=== PATIENT | male | born 1955 | race Caucasian/White ===

== ENCOUNTER 2022-02-03 08:00 | Outpatient (CLI) | payer MEDICARE, SELFPAY ==
[2022-02-03 19:54] LABS: Hemoglobin A1C 8.4 % (<5.7)
[2022-02-03 20:20] LABS: Anion Gap 11 mmol/L (8-16); Blood Urea Nitrogen 20 mg/dL (9-20); Calcium 9.5 mg/dL (8.4-10.2); Carbon Dioxide 25 mmol/L (22-30); Chloride 101 mmol/L (98-107); Estimated Glomerular Filt Rate > 60; Glucose 156 mg/dL (65-110); Sodium 137 mmol/L (137-145)
[2022-02-03 20:21] LABS: Creatinine Urine 207.2 mg/dL
[2022-02-03 20:24] LABS: MALB Creatinine Ratio 6.5 mg/g (0-30); Microalbumin Urine Random 13.4 mg/L (0-16.7)
== END 2022-02-03 08:01 | disposition home or self-care (01) ==
PROVIDERS: PCP Internal Medicine; Visit Provider Clinical Nurse Specialist
DX: E11.9 Type 2 diabetes mellitus without complications (principal)
CPT/HCPCS: 36415; 80048; 82043; 83036

== ENCOUNTER 2022-05-20 09:27 | Outpatient (CLI) | payer MEDICARE, SELFPAY ==
[2022-05-20 19:22] LABS: Basophils Absolute Auto 0.1 K/mm3 (0.0-0.1); Basophils Percent Auto 0.8 % (0.2-1.2); Eosinophils Absolute Auto 0.2 K/mm3 (0-0.3); Eosinophils Percent Auto 2.1 % (0-4.4); Hematocrit 45.9 % (42.0-52.0); Immature Granulocyte Absolute 0.04 K/mm3 (0.00-0.031); Immature Granulocyte Percent A 0.5 % (0-0.5); Lymphocytes Absolute Auto 1.98 K/mm3 (0.9-3.2); Lymphocytes Percent Auto 25.7 % (18.3-44.2); Mean Corpuscular HGB Conc 30.5 g/dl (32-36); Mean Corpuscular Hemoglobin 24.6 pg (26-34); Mean Corpuscular Volume 80.8 fl (80-100); Mean Platelet Volume 11.1 fl (7.4-10.4); Monocytes Absolute Auto 0.7 K/mm3 (0.1-0.6); Monocytes Percent Auto 8.6 % (2.6-8.5); Neutrophils Absolute Auto 4.8 K/mm3 (1.3-6.7); Neutrophils Percent Auto 62.3 % (45.5-73.1); Platelet Count Result 285 k/mm3 (150-375); Red Blood Count 5.68 M/mm3 (4.6-6.20); Red Cell Distribution Width 15.7 % (11.5-14.5); White Blood Count 7.7 K/mm3 (4.5-10.0)
[2022-05-20 19:50] LABS: Alanine Aminotransferase 23 U/L (6-50); Albumin Level 4.2 g/dL (3.5-5.1); Alkaline Phosphatase 71 U/L (38-126); Anion Gap 8 mmol/L (8-16); Aspartate Amino Transferase 40 U/L (17-59); Bilirubin,Total 0.8 mg/dL (0.2-1.3); Blood Urea Nitrogen 20 mg/dL (9-20); Carbon Dioxide 30 mmol/L (22-30); Chloride 101 mmol/L (98-107); Cholesterol 129 mg/dL (0-200); Estimated Glomerular Filt Rate > 60; Glucose 128 mg/dL (65-110); HDL Direct 38 mg/dL; Sodium 139 mmol/L (137-145); Triglycerides 141 mg/dL (<150)
[2022-05-20 19:58] LABS: LDL Cholesterol Direct 54 mg/dL
[2022-05-24 16:10] LABS: Testosterone Total 391 ng/dL (250-1100)
== END 2022-05-20 09:28 | disposition home or self-care (01) ==
LOC: ANHGOSHLAB 09:30
PROVIDERS: PCP Internal Medicine; Visit Provider Clinical Nurse Specialist
DX: R53.83 Other fatigue (principal); E11.9 Type 2 diabetes mellitus without complications; E78.5 Hyperlipidemia, unspecified; Z12.5 Encounter for screening for malignant neoplasm of prostate
CPT/HCPCS: 36415; 80053; 80061; 83036; 84153; 84402; 84403; 85025; G0103

== ENCOUNTER 2022-05-24 08:19 | Outpatient (CLI) | payer MEDICARE, SELFPAY ==
[2022-05-24 19:57] LABS: Hemoglobin A1C 7.5 % (<5.7)
== END 2022-05-24 08:20 | disposition home or self-care (01) ==
LOC: ANHGOSHLAB 08:20
PROVIDERS: PCP Internal Medicine; Visit Provider Clinical Nurse Specialist
DX: E11.9 Type 2 diabetes mellitus without complications (principal); R97.20 Elevated prostate specific antigen [PSA]
CPT/HCPCS: 36415; 83036; 84153

== ENCOUNTER 2022-06-07 14:45 | Outpatient (RCR) | payer MEDICARE, SELFPAY ==
--- NOTE | 2022-04-28 13:23 | PTOPEVAL1 ---
Assessment and note entered by Jose Juan Kerr, PT Evaluation Information Assessment Status Evaluation Diagnosis R shoulder pain Onset really has felt it since his grandson's baseball season this summer Subjective Information Julio reports positional pain in his R shoulder. He has no pain just sitting here, but pain with attempting to sleep on the R side and working out. No radiating pain or weakness going down the arm , besides minimal pain in the biceps. He is hoping to hold off sugery for as long as he can. Reported Pain Level Pain Score 0: Self Report Additional Pain Score Comments reports pain at worst of 6/10 and describes the pain as throbbing Assessment PT Clinical Summary Julio is a 66 year old male coming into the clinic for R shoulder pain. He has normal shoulder strength, good scapular strength, but a tight posterior capsule. Will work on patient with stretches and scapular strengthening to improve space in the shoulder and reduce symptoms. Modalities and manual therapy as needed. Plan of Care Interventions Electrical Stimulation,Gait Training,Hot Pack/Cold Pack,Manual Therapy,Neuro Re-education,Patient/ Caregiver Education,Therapeutic Activities, Therapeutic Exercise Other Interventions taping PT Services Indicated Yes Treatment Frequency and 1-2x/4wks Duration These treatments will address the objective and functional deficits as defined above. The patient will be advanced safely and appropriately in order for the patient to progress towards his/her prior level of function. Additional exercises will be introduced and as well as a comprehensive home exercise program upon discharge, if needed, ?to ensure carryover of functional gains achieved in the clinic. This treatment plan has been reviewed and agreement upon by the patient.
--- NOTE | 2022-05-26 11:24 | PCPTNOTE ---
Patient called & cancelled scheduled appointment this date due to car troubles
--- NOTE | 2022-06-07 15:27 | PTOPDC ---
Assessment and note entered by Jose Juan Kerr, PT Evaluation Information Assessment Status Discharge Diagnosis R shoulder pain Onset last summer after his grandson's baseball season. Subjective Information Patient reports shoulder is better. He does not have pain except with some quick movements and then it is a lightning strike and done. Still does have some trouble with sleeping on his R side . Reported Pain Level Pain Score 0: Self Report Assessment PT Clinical Summary Julio is a 68 year old male coming into the clinic for R shoulder pain. He reports a decrease in pain and an ability to do more without pain. He has improved range of motion in his R shoulder compared to initial evaluation and has met his strength goals. Discharged from skilled physical therapy with HEP. Plan of Care PT Services Indicated No Treatment Frequency and Discharged from skilled physical therapy. Duration
== END 2022-06-08 10:44 | disposition home or self-care (01) ==
LOC: ANHPT 14:45
PROVIDERS: PCP Internal Medicine; Visit Provider Orthopaedic Surgery
DX: M25.511 Pain in right shoulder (principal)
CPT/HCPCS: 97110; 97140; 97161

== ENCOUNTER 2022-10-14 08:00 | Outpatient (CLI) | payer MEDICARE, SELFPAY ==
[2022-10-14 19:37] LABS: Anion Gap 6 mmol/L (8-16); Blood Urea Nitrogen 21 mg/dL (9-20); Calcium 8.8 mg/dL (8.4-10.2); Carbon Dioxide 31 mmol/L (22-30); Chloride 100 mmol/L (98-107); Estimated Glomerular Filt Rate > 60; Glucose 131 mg/dL (65-110); Potassium 4.6 mmol/L (3.4-5.0); Sodium 137 mmol/L (137-145)
[2022-10-14 20:12] LABS: Creatinine Urine 128.9 mg/dL
[2022-10-14 20:22] LABS: MALB Creatinine Ratio < 4.7 mg/g (0-30); Microalbumin Urine Random < 6.0 mg/L (0-16.7)
[2022-10-14 20:36] LABS: Hemoglobin A1C 7.1 % (<5.7)
== END 2022-10-14 08:01 | disposition home or self-care (01) ==
LOC: ANHGOSHLAB 08:09
PROVIDERS: PCP Internal Medicine; Visit Provider Nurse Practitioner
DX: E11.9 Type 2 diabetes mellitus without complications (principal)
CPT/HCPCS: 36415; 80048; 82043; 83036

== ENCOUNTER → 2022-10-18 07:01 | Outpatient (CLI) | payer MEDICARE, SELFPAY ==
--- NOTE | ~2022-10-18 | MR_ITS ---
MRI of the right shoulder Technique: Axial proton-density fat-sat images, coronal proton density fat-sat and T2 fat-sat images, and sagittal T1-weighted and T2 fat-sat images were acquired. Clinical History: Pain Findings: There is mild degenerative change at the AC joint. Small subacromial spur is present. Corac oclavicular, coracoacromial, and coracohumeral ligaments are intact. There is moderate supraspinatus and infraspinatus tendinosis, without partial or full-thickness tear. Subscapularis tendon is intact, with mild to moderate tendinosis. Tendon of the long head of the bic eps is intact, with intra-articular tendinosis. There is probable degenerative tearing at the anterior labrum. No degenerative change or effusion of the glenohumeral joint. Inferior glenohumeral ligament is intac t. No fluid distention of the subacromial/subdeltoid bursa. No muscle atrophy or edema. Impression: Diffuse rotator cuff tendinosis without partial or full-thickness tear. Probable degenerative tearing of the anterior labrum. Mild AC joint degenerative change. Reviewed, dictated and finalized at [facility]. Impression: Diffuse rotator cuff tendinosis without partial or full-thickness tear. Probable degenerative tearing of the anterior labrum. Mild AC joint degenerative change.
== END ==
PROVIDERS: PCP Internal Medicine; Visit Provider Orthopaedic Surgery
DX: M75.01 Adhesive capsulitis of right shoulder (principal); M75.41 Impingement syndrome of right shoulder
CPT/HCPCS: 73221

== ENCOUNTER 2022-12-23 08:03 | Outpatient (CLI) | payer MEDICARE, SELFPAY ==
[2022-12-23 11:48] LABS: Prostate Specific Antigen 2.3 ng/mL (< OR = 4.0)
== END 2022-12-23 08:04 | disposition home or self-care (01) ==
PROVIDERS: PCP Internal Medicine; Visit Provider Clinical Nurse Specialist
DX: C61 Malignant neoplasm of prostate (principal)
CPT/HCPCS: 36415; 84153

== ENCOUNTER 2023-02-14 08:05 | Outpatient (CLI) | payer MEDICARE, SELFPAY ==
[2023-02-14 21:11] LABS: Anion Gap 9 mmol/L (8-16); Blood Urea Nitrogen 19 mg/dL (9-20); Calcium 9.6 mg/dL (8.4-10.2); Carbon Dioxide 30 mmol/L (22-30); Chloride 99 mmol/L (98-107); Estimated Glomerular Filt Rate > 60; Glucose 130 mg/dL (65-110); Potassium 4.1 mmol/L (3.4-5.0); Sodium 138 mmol/L (137-145)
== END 2023-02-14 08:06 | disposition home or self-care (01) ==
LOC: ANHGOSHLAB 08:06
PROVIDERS: PCP Internal Medicine; Visit Provider Clinical Nurse Specialist
DX: E11.9 Type 2 diabetes mellitus without complications (principal); I10 Essential (primary) hypertension
CPT/HCPCS: 36415; 80048; 83036

== ENCOUNTER 2023-06-30 07:59 | Outpatient (CLI) | payer MEDICARE, SELFPAY ==
[2023-06-30 19:04] LABS: Alanine Aminotransferase 25 U/L (6-50); Albumin Level 4.3 g/dL (3.5-5.1); Alkaline Phosphatase 70 U/L (38-126); Anion Gap 6 mmol/L (8-16); Aspartate Amino Transferase 34 U/L (17-59); Bilirubin,Total 0.7 mg/dL (0.2-1.3); Blood Urea Nitrogen 16 mg/dL (9-20); Calcium 9.9 mg/dL (8.4-10.2); Carbon Dioxide 31 mmol/L (22-30); Chloride 101 mmol/L (98-107); Estimated Glomerular Filt Rate > 60; Glucose 156 mg/dL (65-110); Potassium 4.4 mmol/L (3.4-5.0); Sodium 138 mmol/L (137-145)
[2023-06-30 19:37] LABS: Basophils Percent Auto 0.6 % (0.2-1.2); Eosinophils Absolute Auto 0.1 K/mm3 (0-0.3); Eosinophils Percent Auto 1.5 % (0-4.4); Hematocrit 42.5 % (42.0-52.0); Immature Granulocyte Absolute 0.01 K/mm3 (0.00-0.031); Immature Granulocyte Percent A 0.2 % (0-0.5); Lymphocytes Absolute Auto 1.78 K/mm3 (0.9-3.2); Mean Corpuscular HGB Conc 30.6 g/dl (32-36); Mean Corpuscular Hemoglobin 25.3 pg (26-34); Mean Corpuscular Volume 82.8 fl (80-100); Mean Platelet Volume 11.3 fl (7.4-10.4); Monocytes Absolute Auto 0.6 K/mm3 (0.1-0.6); Monocytes Percent Auto 9.5 % (2.6-8.5); Neutrophils Percent Auto 61.2 % (45.5-73.1); Platelet Count Result 296 k/mm3 (150-375); Red Blood Count 5.13 M/mm3 (4.6-6.20); Red Cell Distribution Width 14.5 % (11.5-14.5); White Blood Count 6.6 K/mm3 (4.5-10.0)
[2023-06-30 20:08] LABS: Prostate Specific Antigen 2.3 ng/mL (< OR = 4.0)
[2023-06-30 20:57] LABS: Creatinine Urine 217.3 mg/dL
[2023-06-30 21:02] LABS: MALB Creatinine Ratio 4.1 mg/g (0-30)
[2023-06-30 21:55] LABS: Hemoglobin A1C 8.3 % (<5.7)
== END 2023-06-30 08:00 | disposition home or self-care (01) ==
LOC: ANHGOSHLAB 08:01
PROVIDERS: PCP Internal Medicine; Visit Provider Clinical Nurse Specialist
DX: R97.20 Elevated prostate specific antigen [PSA] (principal); E11.9 Type 2 diabetes mellitus without complications
CPT/HCPCS: 36415; 80053; 82043; 83036; 84153; 85025

== ENCOUNTER 2023-10-31 13:39 | Outpatient (CLI) | payer MEDICARE, SELFPAY ==
--- NOTE | ~2023-10-31 | XR_ITS ---
XR chest 2V Ordering provider: ALEX Webster History: 68 years Male with . R50.9 - Fever, unspecified . Comparison: None. FINDINGS: MEDIASTINUM: The cardiac silhouette is not enlarged. LUNGS: No infiltrates, effusions or pneumothorax. Slightly prominent markings in the lower lobes. OTHER: No free air under the diaphragm. Degenerative changes of the spine. IMPRESSION: No acute cardiopulmonary pathology. Reviewed, dictated and finalized at location A.
== END 2023-10-31 13:40 ==
PROVIDERS: PCP Internal Medicine; Visit Provider Clinical Nurse Specialist
DX: R50.9 Fever, unspecified (principal); R05.9 Cough, unspecified
CPT/HCPCS: 71046

== ENCOUNTER 2023-12-22 07:54 | Outpatient (CLI) | payer MEDICARE, SELFPAY ==
[2023-12-22 12:24] LABS: Basophils Absolute Auto 0.1 K/mm3 (0.0-0.1); Basophils Percent Auto 0.8 % (0.2-1.2); Eosinophils Absolute Auto 0.2 K/mm3 (0-0.3); Eosinophils Percent Auto 2.6 % (0-4.4); Hematocrit 41.3 % (42.0-52.0); Hemoglobin 12.5 g/dL (14.0-18.0); Immature Granulocyte Absolute 0.01 K/mm3 (0.00-0.031); Immature Granulocyte Percent A 0.2 % (0-0.5); Lymphocytes Absolute Auto 1.72 K/mm3 (0.9-3.2); Lymphocytes Percent Auto 28.5 % (18.3-44.2); Mean Corpuscular HGB Conc 30.3 g/dl (32-36); Mean Corpuscular Hemoglobin 24.7 pg (26-34); Mean Corpuscular Volume 81.6 fl (80-100); Mean Platelet Volume 11.8 fl (7.4-10.4); Monocytes Absolute Auto 0.7 K/mm3 (0.1-0.6); Monocytes Percent Auto 11.1 % (2.6-8.5); Neutrophils Absolute Auto 3.4 K/mm3 (1.3-6.7); Neutrophils Percent Auto 56.8 % (45.5-73.1); Platelet Count Result 297 k/mm3 (150-375); Red Blood Count 5.06 M/mm3 (4.6-6.20); Red Cell Distribution Width 15.3 % (11.5-14.5)
[2023-12-22 12:58] LABS: Alanine Aminotransferase 18 U/L (6-50); Albumin Level 4.2 g/dL (3.5-5.1); Alkaline Phosphatase 74 U/L (38-126); Anion Gap 9 mmol/L (4-12); Aspartate Amino Transferase 56 U/L (17-59); Bilirubin,Total 0.6 mg/dL (0.2-1.3); Blood Urea Nitrogen 14 mg/dL (9-20); Calcium 8.9 mg/dL (8.4-10.2); Carbon Dioxide 30 mmol/L (22-30); Chloride 99 mmol/L (98-107); Estimated Glomerular Filt Rate > 60; Glucose 146 mg/dL (65-110); Potassium 4.8 mmol/L (3.4-5.0); Sodium 138 mmol/L (137-145)
[2023-12-22 13:24] LABS: Thyroid Stimulating Hormone 0.924 uIU/mL (0.465-4.680)
[2023-12-22 13:40] LABS: MALB Creatinine Ratio < 3.2 mg/g (0-30); Microalbumin Urine Random < 6.0 mg/L (0-16.7)
== END 2023-12-22 07:55 | disposition home or self-care (01) ==
LOC: ANHGOSHLAB 07:55
PROVIDERS: PCP Internal Medicine; Visit Provider Clinical Nurse Specialist
DX: R53.83 Other fatigue (principal); I10 Essential (primary) hypertension; E78.5 Hyperlipidemia, unspecified; E11.9 Type 2 diabetes mellitus without complications
CPT/HCPCS: 36415; 80053; 82043; 83036; 84443; 85025

== ENCOUNTER 2024-01-29 10:20 | Emergency (ER) | payer MEDICARE, SELFPAY ==
--- NOTE | ~2024-01-29 | XR_ITS ---
EXAMINATION:XR_CERV2-3V_CR DATE: 01/29/2024 11:25 INDICATION: Nontraumatic neck pain TECHNIQUE: AP, lateral, lateral swimmers and open mouth and submental odontoid views of the cervical spine are provided. COMPARISON: None FINDINGS: Alignment is normal. Odontoid is intact. Mild atlantoaxial osteoarthritis. Vertebral body heights are normal. Disc spaces are normal with anterior endplate osteophytes at multiple levels in multilevel m ild to moderate lateral cervical facet osteoarthritis and moderate to severe facet osteoarthritis curt aterally at C7-T1. Prevertebral soft tissues are normal. Visualized upper lungs are clear. IMPRESSION: 1. Cervical facet osteoarthritis. Reviewed, dictated and finalized at location A.
[2024-01-29 10:34] VITALS: BP 132/86; PULSE 84; RESP 16; TEMP 36.3; O2SAT 100
--- NOTE | 2024-01-29 11:05 | ED.GENADULT ---
HPI - General Adult General Chief complaint: Neck Pain/Injury Stated complaint: NECK/R SHOULDER PAIN Source: patient Mode of arrival: ambulatory Limitations: no limitations History of Present Illness HPI narrative: Patient presents for evaluation of neck pain for the past few days. No present injury or identified cause. No history of similar symptoms. Pain is constant, sharp, rated 6/10 severity, worse with movement. Denies any shoulder pain or loss of ROM in the shoulder. He tried taking a muscle relaxer without much improvement. Related Data Allergies Allergy/AdvReac Type Severity Reaction Status Date / Time No Known Allergies Allergy Verified 01/29/24 10:32 Review of Systems Review of Systems: CONSTITUTIONAL: Denies fever, chills, or sweats. EYES: Denies visual changes, redness, or discharge. ENT: Denies rhinorrhea, congestion, sore throat, or otalgia. CARDIOVASCULAR: Denies chest pain, palpitations, or edema. RESPIRATORY: Denies cough or dyspnea. GASTROINTESTINAL: Denies abdominal pain, nausea, vomiting, or diarrhea. GENITOURINARY: Denies dysuria or hematuria. SKIN: Denies rash or itching. MUSCULOSKELETAL: Reports neck pain. Denies back pain and shoulder pain NEUROLOGIC: Denies headache, numbness, dizziness, or weakness. PSYCHIATRIC: Denies anxiety or depression. [facility] Past Medical History Medical History Adhesive capsulitis of right shoulder Chicken pox Diabetes mellitus Erectile dysfunction Family history of prostate cancer in father History of measles, mumps, or rubella Hyperlipemia Hyperlipemia Hypertension Screening for prostate cancer Subacromial impingement of right shoulder Surgical History Surgical History H/O elbow surgery debride R med epicondyle 2010 H/O knee surgery H/O shoulder surgery L Acr, DCE 2013 Family History Family History Father Family history of transient ischemic attacks Cerebrovascular accident Malignant neoplasm of prostate Mother Palpitations Diabetes mellitus Hypertension Social History Social History Smoking status: Never smoker Alcohol intake: current Alcohol use details: social Substance use type: does not use Lack of Transportation: No Lack of Food: Never True Current Housing: I Have Housing Concerned About Future Housing: No Difficulty Paying Gas/Electric Bills: No Difficulty Paying for Meds: No Currently Unemployed: No Education: Bachelor's Degree Difficulty w/ Childcare or Family Care: Decline to Answer Living arrangements: with family Occupation/Education: retired Gender identity (if verbalized by the patient): Male Course Course Emergency Course: This is a 68-year-old male who presented for evaluation of neck pain. X-ray showed arthritic changes. Will discharge with tramadol and Medrol Dosepak. Monitor blood sugar closely at home. Application of warm moist heat may help. Follow up with primary provider. Go to the ER for worsening symptoms. Pt in agreement with plan of care. Level of Care: Express Care Visit Vital Signs Vital signs: Vital Signs Temperature 36.3 C L 01/29/24 10:34 Pulse Rate 84 01/29/24 10:34 Respiratory Rate 16 01/29/24 10:34 Blood Pressure 132/86 01/29/24 10:34 Pulse Oximetry 100 01/29/24 10:34 Temperature 36.3 C L 01/29/24 10:34 Pulse Rate 84 01/29/24 10:34 Respiratory Rate 16 01/29/24 10:34 Blood Pressure 132/86 01/29/24 10:34 Pulse Oximetry 100 01/29/24 10:34 Medical Decision Making Vital Signs Vital Signs: Vital Signs Temperature 36.3 C L 01/29/24 10:34 Pulse Rate 84 01/29/24 10:34 Respiratory Rate 16 01/29/24 10:34 Blood Pressure 132/86 01/29/24 10:34 Pulse Oximetry 100
== END 2024-01-29 12:02 | disposition home or self-care (01) ==
PROVIDERS: Emergency Provider Nurse Practitioner; PCP Clinical Nurse Specialist
DX: M47.812 Spondylosis without myelopathy or radiculopathy, cervical region (principal); E11.9 Type 2 diabetes mellitus without complications; E78.5 Hyperlipidemia, unspecified; I10 Essential (primary) hypertension
CPT/HCPCS: 72040; 99213; G0463

== ENCOUNTER 2024-02-29 08:04 | Outpatient (CLI) | payer MEDICARE, SELFPAY ==
[2024-02-29 21:37] LABS: Prostate Specific Antigen 2.1 ng/mL (< OR = 4.0)
== END 2024-02-29 08:05 | disposition home or self-care (01) ==
PROVIDERS: PCP Clinical Nurse Specialist; Visit Provider Nurse Practitioner
DX: C61 Malignant neoplasm of prostate (principal)
CPT/HCPCS: 36415; 84153

== ENCOUNTER 2024-05-09 12:14 | Outpatient (CLI) | payer MEDICARE, SELFPAY ==
--- NOTE | ~2024-05-09 | US_ITS ---
EXAMINATION: US art doppler w press LE BI DATE: 05/09/2024 12:56 INDICATION: Peripheral arterial occlusive disease TECHNIQUE: Segmental pressures and plethysmographic and Doppler waveforms of the brachial and lower e xtremity arteries were obtained. COMPARISON: None. FINDINGS: Right and left brachial artery pressures of 109 mm Hg and 114 mm Hg, respectively, are concordant (no rmal difference <= 30 mmHg). The right ankle-brachial index (VIDAL) is 1.14 (normal >= 0.9-1). The right great toe-brachial index (T BI) was unable be obtained due to no discernible pulse (normal >= 0.6-0.8). Arterial waveforms are tr iphasic in the right common femoral artery and biphasic in the right popliteal, posterior tibial and dorsalis pedis arteries, all with brisk systolic upstrokes. There are parvus et tardus waveforms in t he toes of the right foot. The left VIDAL is 1.17. The left TBI is 0.50. Arterial waveforms are triphasic in the left common femo ral artery and biphasic in the left popliteal, posterior tibial and dorsalis pedis arteries, all with brisk systolic upstrokes. There are parvus et tardus waveforms in the toes of the left foot. IMPRESSION: 1. Normal VIDAL's bilaterally with no significant arterial occlusive disease above level of the ankles. 2. Decreased left TBI and no discernible pulse at the right great toe and with parvus and tardus wave forms at the toes both feet suggesting small vessel ischemic disease below the level of the ankles. Reviewed, dictated and finalized at location B. ILLERY MILLER IMPRESSION: 1. Normal VIDAL's bilaterally with no significant arterial occlusive disease abov e level of the ankles. 2. Decreased left TBI and no discernible pulse at the right great toe and with parvus and tardus waveforms at the toes both feet suggesting small vessel ische blaine disease below the level of the ankles.
== END 2024-05-09 12:15 | disposition home or self-care (01) ==
LOC: CHSIMG 12:15
PROVIDERS: PCP Clinical Nurse Specialist; Visit Provider Podiatrist Foot & Ankle Surgery
DX: I73.9 Peripheral vascular disease, unspecified (principal)
CPT/HCPCS: 93923

== ENCOUNTER 2024-07-20 08:13 | Outpatient (CLI) | payer MEDICARE, SELFPAY ==
--- OUTSIDE RECORDS SUMMARY | 2024-07-20 08:20 | XMS_ITS | Referral Summary ---
Author Organization [facility] Physician Of [facility] [address] [place] [id number] Care Team Providers Care Mobile Ui Developer Name Role Phone Felipe Jiménez DO Primary Care Provider [phone]- [phone] Allergies No known active allergies Medications timolol (TIMOPTIC) 0.5 % ophthalmic solutionIndicatio ns:open angle glaucoma Administer 1 drop into both eyes every morning 2 Active sildenafiL (VIAGRA) 50 mg tabletIndications :Erectile Dysfunction Take 1 tablet (50 mg total) by mouth as needed 3 Active latanoprost (XALATAN) 0.005 % ophthalmic solutionIndicatio ns:open angle glaucoma Administer 1 drop into both eyes nightly 3 Active simvastatin (ZOCOR) 10 mg tabletIndications :hyperlipidemia Take 1 tablet (10 mg total) by mouth nightly Active lisinopriL (PRINIVIL,ZESTRIL ) 20 mg tabletIndications :hypertension Take 1 tablet (20 mg total) by mouth every morning Active Trulicity 0.75 mg/0.5 mL pen injectorIndicatio ns:type 2 diabetes mellitus Inject 0.5 mL (0.75 mg total) under the skin once a week 3 Active tadalafiL (CIALIS) 20 mg tabletIndications :Erectile dysfunction due to arterial insufficiency Take 1 tablet (20 mg total) by mouth daily as needed for erectile dysfunction (1 daily max) 20 tablet 11 4 025 Active Active Problems Problem Noted Date Diagnosed Date Elevated PSA 06/24/2022 Overview (06/24/2022): Added automatically from request for surgery [id number] Social History Tobacco Use Types Packs/Day Years Used Date Smoking Tobacco: Never Passive Smoke Exposure: Never Smokeless Tobacco: Never AUDIT-C Answer Date Recorded Q1: How often do you have a drink containing alc ohol? 2-4 times a month 06/24/2022 Q2: How many drinks containi ng alcohol do you have on a typical day when you are drinking? 1 or 2 06/24/2022 Q3: How often do you have si x or more drinks on one occasion? 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 Gender Identity Not on file Sexual Orientation Not on file Last Filed Vital Signs Vital Sign Reading Time Taken Comments Blood Pressure 122/79 07/02/2022 3:00 PM OVEN HEATER Pulse 77 07/02/2022 3:10 PM OVEN HEATER Temperature 35.8 C (96.4 F) 07/02/2022 3:10 PM OVEN HEATER Respiratory Rate 27 07/02/2022 3:10 PM OVEN HEATER Oxygen Saturation 100% 07/02/2022 3:10 PM OVEN HEATER Inhaled Oxygen Concentration - - Weight 88.5 kg (195 lb 1.7 oz) 07/02/2022 12:06 PM OVEN HEATER Height 185.4 cm (6' 1 ) 07/02/2022 12:06 PM OVEN HEATER Body Mass Index 25.74 07/02/2022 12:06 PM OVEN HEATER Plan of Treatment Not on file Insurance [facility] MEDIC[facility] Address: [address] [address] [place] [address] [facility] Address: [address] [address] [place] [address] Care Teams Mobile Ui Developer Relationship Specialty Start Date End Date Felipe Jiménez DO PCP - General Internal Medicine 05/26/22
--- OUTSIDE RECORDS SUMMARY | 2024-07-20 08:20 | XMS_ITS | Clinical Summary ---
Author Organization [facility] Physician Of [facility] [address] [place] [id number] Care Team Providers Care Licensing Officer Name Role Phone Felipe Jiménez DO Primary Care Provider +1- [phone] Allergies No known active allergies Medications timolol [...] (06/24/2022): Added automatically from request for surgery [id number] Surgical History Surgery Date Site/Laterality Comments KNEE SURGERY 04/25/1996 - 04/24/1997 Left ELBOW SURGERY 04/25/2012 - 04/24/2013 Right SHOULDER SURGERY 04/25/2010 - 04/24/2011 Left TONSILLECTOMY 04/25/1959 - 04/24/1960 Medical History Medical History Date Comments PONV (postoperative nausea and vomiting) Family History Medical History Relation Name Comments Anesthesia problems Neg Hx Social History Tobacco Use Types Packs/Day Years [...] on file Legal Sex Male 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 Gender Identity Not on file Sexual Orientation Not on file Obstetrics History Last Filed Vital Signs Vital Sign Reading Time Taken Comments Blood Pressure 122/79 07/02/2022 3:00 PM 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 Pulse 77 07/02/2022 3:10 PM 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 Temperature 35.8 C (96.4 F) 07/02/2022 3:10 PM 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 Respiratory Rate 27 07/02/2022 3:10 PM 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 Oxygen Saturation 100% 07/02/2022 3:10 PM 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 Inhaled Oxygen Concentration - - Weight 88.5 kg (195 lb 1.7 oz) 07/02/2022 12:06 PM 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 Height 185.4 cm (6' 1 ) 07/02/2022 12:06 PM 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 Body Mass Index 25.74 07/02/2022 12:06 PM 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 Plan of Treatment Health Maintenance Due Date Last Done Comments Colon Cancer Screening-Colonoscopy 1955 Depression Screening 1955 Hepatitis C Screening 1955 Prostate Cancer Screening-PSA 1955 Hepatitis B Screening 1973 Pneumococcal vaccine 65+ (1 of 1 - PCV) 2005 Zoster Vaccine (1 of 2) 2005 Well Visit 65+ 2020 Fall Risk Assessment 07/03/2023 07/02/2022 Covid-19 Vaccine (4 - 2023-2 5 season) 2023 02/26/2021, 06/17/2020, 05/27/2020 Influenza Vaccine (#1) 2023 , 02/26/2021, 03/02/2015, Additional history exists DTaP/Tdap/Td Vaccine (2 - Td or Tdap) 07/28/2030 07/28/2020 Insurance [facility] MEDICARE [facility]ANT[facility] Address: [facility] [address] [place] [address] [facility] MEDICARE [facility] Address: [address] [address] [place] [address] Care Teams Licensing Officer Relationship Specialty Start Date End Date Felipe Jiménez DO PCP - General Internal Medicine 05/26/22
[2024-07-20 12:57] LABS: Basophils Percent Auto 0.5 % (0.2-1.2); Eosinophils Absolute Auto 0.2 K/mm3 (0-0.3); Eosinophils Percent Auto 2.4 % (0-4.4); Hematocrit 41.9 % (42.0-52.0); Hemoglobin 12.9 g/dL (14.0-18.0); Immature Granulocyte Absolute 0.02 K/mm3 (0.00-0.031); Immature Granulocyte Percent A 0.3 % (0-0.5); Lymphocytes Absolute Auto 1.62 K/mm3 (0.9-3.2); Lymphocytes Percent Auto 26.3 % (18.3-44.2); Mean Corpuscular HGB Conc 30.8 g/dl (32-36); Mean Corpuscular Hemoglobin 25.2 pg (26-34); Mean Platelet Volume 11.5 fl (7.4-10.4); Monocytes Absolute Auto 0.6 K/mm3 (0.1-0.6); Monocytes Percent Auto 9.4 % (2.6-8.5); Neutrophils Absolute Auto 3.8 K/mm3 (1.3-6.7); Neutrophils Percent Auto 61.1 % (45.5-73.1); Platelet Count Result 262 k/mm3 (150-375); Red Blood Count 5.11 M/mm3 (4.6-6.20); Red Cell Distribution Width 14.3 % (11.5-14.5); White Blood Count 6.2 K/mm3 (4.5-10.0)
[2024-07-20 14:28] LABS: Hemoglobin A1C 8.3 % (<5.7)
== END 2024-07-20 08:14 | disposition home or self-care (01) ==
LOC: ANHGOSHLAB 08:15
PROVIDERS: PCP Clinical Nurse Specialist; Visit Provider Clinical Nurse Specialist
DX: E11.9 Type 2 diabetes mellitus without complications (principal)
CPT/HCPCS: 36415; 83036; 85025

== ENCOUNTER 2024-11-22 08:03 | Outpatient (CLI) | payer MEDICARE, SELFPAY ==
--- OUTSIDE RECORDS SUMMARY | 2024-11-22 08:07 | XMS_ITS | Clinical Summary ---
Author Organization [facility] Physician Of [facility] [address] [place] [id number] Care Team Providers Care Ship Scraper Name Role Phone Felipe Jiménez DO Primary Care Provider [phone]- [phone] Allergies No known active allergies Medications timolol [...] max) 20 tablet 11 4 025 Active aspirin 81 mg enteric coated tablet Take 1 tablet (81 mg total) by mouth daily Active Active Problems Problem Noted Date Diagnosed Date PVD (peripheral vascular disease) 08/15/2024 Assessment & Plan (09/05/2024 12:03 PM CDT): Normal ABIs, triphasic waveforms. Patient remains asymptomatic. No vascular surgery follow-up required. Patient okay to undergo podiatry work as needed. Follow up in the office on as needed basis Assessment & Plan (08/15/2024 9:03 AM CDT): Continue aspirin regimen. Will repeat bilateral lower extremity Doppler as previous was done at outside facility in April. Patient has a normal exam in the office today with palpable distal pulses. Feet are warm and well perfused. As patient is active no considerable concern for any type of procedural or surgical intervention from a vascular standpoint. Will have patient follow-up in the office after his arterial Doppler for further discussion of his results. Elevated PSA 06/24/2022 Overview (06/24/2022): Added automatically from request for surgery [id number] Encounters Date Type Department Care Team Description 09/05/2024 9:15 AM CDT Office Visit [facility] Vascular at [address] [address] Lynsey Mckinney PA PVD (peripheral vascular disease) (Primary Dx); Hyperlipidemia, unspecified hyperlipidemia type; Essential hypertension 08/22/2024 1:00 PM CDT Ancillary Procedure [facility] Vascular and Vein Surgery at [address] [place] [address] Atherosclerosis of mi[place] artery of both lower extremities with intermittent claudication from Last 3 Months Surgical History Surgery Date Site/Laterality Comments KNEE [...] on file Legal Sex Male 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 Gender Identity Not on file Sexual Orientation Not on file Obstetrics History Last Filed Vital Signs Vital Sign Reading Time Taken Comments Blood Pressure 111/66 09/05/2024 9:42 AM CDT Pulse 55 09/05/2024 9:42 AM CDT Temperature 35.8 C (96.4 F) 07/02/2022 3:10 PM SHOP WELDER Respiratory Rate 27 07/02/2022 3:10 PM SHOP WELDER Oxygen Saturation 99% 09/05/2024 9:42 AM CDT Inhaled Oxygen Concentration - - Weight 89.8 kg (198 lb) 09/05/2024 9:42 AM CDT Height 185.4 cm (6' 1) 09/05/2024 9:42 AM CDT Body Mass Index 26.12 09/05/2024 9:42 AM CDT Plan of Treatment Health Maintenance Due Date Last Done Comments Albumin Creatinine Ratio, Urine 1955 Colon Cancer Screening-Colonoscopy 1955 Depression Screening 1955 Hemoglobin A1C 1955 Hepatitis C Screening 1955 Prostate Cancer Screening-PSA 1955 eGFR 1955 Dilated Eye Exam 1955 Foot Exam 1955 Lipid Panel 1955 Hepatitis B Screening 1973 Pneumococcal vaccine 65+ (1 of 2 - PCV) 1974 Zoster Vaccine (1 of 2) 2005 Well Visit 65+ 2020 Fall Risk Assessment 07/03/2023 07/02/2022 Covid-19 Vaccine (2023-2 5 season) 2023 02/26/2021, 06/17/2020, 05/27/2020 Influenza Vaccine (#1) 2024 2, 02/26/2021, 03/02/2015, Additional history exists DTaP/Tdap/Td Vaccine (2 - Td or Tdap) 07/28/2030 07/28/2020 Procedures Procedure Name Priority Date/Time Associated Diagnosis Comments US ARTERIAL DOPPLER LOWER EXTREMITY BILATERAL Schedule Routine, Read Routine (OP Routine) 08/22/2024 1:21 PM CDT Atherosclerosis of miami artery of both lower extremities with intermittent claudication from Last 3 Months Results * US Arterial Doppler Lower Extremity Bilateral (08/22/2024 1:21 PM CDT) Anatomical Region Laterality Modality Vascular Bilateral Ultrasound 08/22/2024 12:4 8 PM CDT Narrative 08/22/2024 2:12 PM CDT Vascular & Vein Surgery [address] [place] [id number] Lower Extremity Arterial Doppler Report Patient Name: JULIO INTERIANOAmber : 1955 Study Date: 08/22/2024 12:48:00 PM Gender: M Electric Motor Control Assembler: Regla Ash RVT Location: [facility] Ref Provider: MARLEE FERNANDES Quality: Adequate Order Provider: MARLEE FERNANDES PROCEDURES: Arterial Report: Bilateral lower extremity arterial Doppler exam at rest. INDICATIONS: I70.213 Atherosclerosis of miami arteries of extremities with intermittent claudication, bilateral legs. HISTORY: HTN. HLD. DM. COMPARISONS: The previous exam was completed on 05/09/24 @ [facility]: Bilat VIDAL 1.1, Rt TBI unable to be obtained, Lt TBI 0.50. MEASUREMENTS: Right Value Left Value Rt Brachial Pressure 115 mmHg Lt Brachial Pressure 117 mmHg Rt SLD TEACHER Pressure 134 mmHg Lt SLD TEACHER Pressure 132 mmHg Rt DPA Pressure 124 mmHg Lt DPA Pressure 130 mmHg Rt 1st Digit Pressure 37 mmHg Lt 1st Digit Pressure 78 mmHg Rt PT VIDAL Resting 1.15 Lt PT VIDAL Resting 1.13 Rt DP VIDAL Resting 1.06 Lt DP VIDAL Resting 1.11 Rt Digit 1/Arm Index 0.32 Lt Digit 1/Arm Index 0.67 FINDINGS: Right Common Femoral Artery Analysis: The common femoral artery waveform is triphasic. Right Popliteal Artery Analysis: The popliteal waveform is triphasic. Right Posterior Tibial Artery Analysis: The posterior tibial waveform is triphasic. Right Anterior Tibial Artery Analysis: The anterior tibial waveform is triphasic. Right Digits: The right digit waveform is dampened. Left Common Femoral Artery Analysis: The common femoral artery waveform is triphasic. Left Popliteal Artery Analysis: The popliteal waveform is triphasic. Left Posterior Tibial Artery Analysis: The posterior tibial waveform is triphasic. Left Anterior Tibial Artery Analysis: The anterior tibial waveform is triphasic. Left Digits: The left digit waveform is dampened. CONCLUSIONS: 1. Ankle-brachial index of 0.9-1.3 is within normal limits in the bilateral lower extremities. ATTESTATION: I have reviewed and interpreted the pertinent images and measurements of this study. I attest to the conclusions in the final report that is provided above. Electronically Signed By: Marlee Fernandes MD 08/22/2024 1:41:53 PM CDT Procedure Note Marlee Fernandes MD - 08/22/2024 Vascular & Vein Surgery [address] [facility] [place] [address] Lower Extremity Arterial Doppler Report Patient Name: JAYDONJULIO D : 1955 Study Date: 08/22/2024 12:48:00 PM Gender: M Electric Motor Control Assembler: Regla Ash RVT Location: [facility] Ref Provider: MARLEE FERNANDES Quality: Adequate Order Provider: MARLEE FERNANDES PROCEDURES: Arterial Report: Bilateral lower extremity arterial Doppler exam at rest. INDICATIONS: I70.213 Atherosclerosis of miami arteries of extremities withintermittent claudication, bilateral legs. HISTORY: HTN. HLD. DM. COMPARISONS: The previous exam was completed on 05/09/24 @ [facility]: Bilat ABI1.1, Rt TBI unable to be obtained, Lt TBI 0.50. MEASUREMENTS: Right Value Left Value Rt Brachial Pressure 115 mmHg Lt Brachial Pressure 117 mmHg Rt SLD TEACHER Pressure 134 mmHg Lt SLD TEACHER Pressure 132 mmHg Rt DPA Pressure 124 mmHg Lt DPA Pressure 130 mmHg Rt 1st Digit Pressure 37 mmHg Lt 1st Digit Pressure 78 mmHg Rt PT VIDAL Resting 1.15 Lt PT VIDAL Resting 1.13 Rt DP VIDAL Resting 1.06 Lt DP VIDAL Resting 1.11 Rt Digit 1/Arm Index 0.32 Lt Digit 1/Arm Index 0.67 FINDINGS: Right Common Femoral Artery Analysis: The common femoral artery waveform is triphasic. Right Popliteal Artery Analysis: The popliteal waveform is triphasic. Right Posterior Tibial Artery Analysis: The posterior tibial waveform is triphasic. Right Anterior Tibial Artery Analysis: The anterior tibial waveform is triphasic. Right Digits: The right digit waveform is dampened. Left Common Femoral Artery Analysis: The common femoral artery waveform is triphasic. Left Popliteal Artery Analysis: The popliteal waveform is triphasic. Left Posterior Tibial Artery Analysis: The posterior tibial waveform is triphasic. Left Anterior Tibial Artery Analysis: The anterior tibial waveform is triphasic. Left Digits: The left digit waveform is dampened. CONCLUSIONS: 1. Ankle-brachial index of 0.9-1.3 is within normal limits in thebilateral lower extremities. ATTESTATION: I have reviewed and interpreted the pertinent images and measurements ofthis study. I attest to the conclusions in the final report that is provided above. Electronically Signed By: Marlee Fernandes MD 08/22/2024 1:41:53 PM CDT us Marlee Fernandes MD [facility] PROCEDURES Final Result from Last 3 Months Insurance [employer] MEDICARE ADVANTAGE [employer] MEDICARE ADVANTAGE Care Teams Ship Scraper Relationship Specialty Start Date End Date Felipe Jiménez DO PCP - General Internal Medicine 05/26/22
--- OUTSIDE RECORDS SUMMARY | 2024-11-22 08:07 | XMS_ITS | Referral Summary ---
Author Organization [facility] Physician Of [facility] [address] [place] [address] Care Team Providers Care Truckman Name Role Phone Felipe Jiménez DO Primary Care Provider [phone]- [phone] Encounters Date Type Department Care Team Description 09/05/2024 9:15 AM CDT Office Visit [facility] Medical Group Vascular at [address] [place] [address] Lynsey Mckinney PA PVD (peripheral vascular disease) (Primary Dx); Hyperlipidemia, unspecified hyperlipidemia type; Essential hypertension 08/22/2024 1:00 PM CDT Ancillary Procedure [facility] Vascular and Vein Surgery at [address] [place] [address] Atherosclerosis of mak[place] artery of both lower extremities with intermittent claudication from Last 3 Months Allergies No known active allergies Medications timolol [...] (06/24/2022): Added automatically from request for surgery [id number] Social History Tobacco Use Types Packs/Day Years [...] on file Legal Sex Male 2:15 AM 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 TOP ASSEMBLER Gender Identity Not on file Sexual Orientation Not on file Last Filed Vital Signs Vital Sign Reading Time Taken Comments Blood Pressure 111/66 09/05/2024 9:42 AM CDT Pulse 55 09/05/2024 9:42 AM CDT Temperature 35.8 C (96.4 F) 07/02/2022 3:10 PM COUNTER TOP ASSEMBLER Respiratory Rate 27 07/02/2022 3:10 PM COUNTER TOP ASSEMBLER Oxygen Saturation 99% 09/05/2024 9:42 AM CDT Inhaled Oxygen Concentration - - Weight 89.8 kg (198 lb) 09/05/2024 9:42 AM CDT Height 185.4 cm (6' 1) 09/05/2024 9:42 AM CDT Body Mass Index 26.12 09/05/2024 9:42 AM CDT Plan of Treatment Not on file Procedures Procedure Name Priority Date/Time Associated Diagnosis Comments US ARTERIAL DOPPLER LOWER EXTREMITY BILATERAL Schedule Routine, Read Routine (OP Routine) 08/22/2024 1:21 PM CDT Atherosclerosis of makah artery of both lower extremities with intermittent claudication from Last 3 Months Results * US Arterial Doppler Lower Extremity Bilateral (08/22/2024 1:21 PM CDT) Anatomical Region Laterality Modality Vascular Bilateral Ultrasound 08/22/2024 12:4 8 PM CDT Narrative 08/22/2024 2:12 PM CDT Vascular & Vein Surgery [address] [place] [address] Lower Extremity Arterial Doppler Report Patient Name: JULIO INTERIANOAmber : 1955 Study Date: 08/22/2024 12:48:00 PM Gender: M Shipping And Receiving Supervisor: Regla Ash RVT Location: [facility] Ref Provider: MARLEE FERNANDES Quality: Adequate Order Provider: MARLEE FERNANDES PROCEDURES: Arterial Report: Bilateral lower extremity arterial Doppler exam at rest. INDICATIONS: I70.213 Atherosclerosis of makah arteries of extremities with intermittent claudication, bilateral legs. HISTORY: HTN. HLD. DM. COMPARISONS: The previous exam was completed on 05/09/24 @ [facility]: Bilat VIDAL 1.1, Rt TBI unable to be obtained, Lt TBI 0.50. MEASUREMENTS: Right Value Left Value Rt Brachial Pressure 115 mmHg Lt Brachial Pressure 117 mmHg Rt SHOE CASER Pressure 134 mmHg Lt SHOE CASER Pressure 132 mmHg Rt DPA Pressure 124 [...] MD - 08/22/2024 Vascular & Vein Surgery [facility] [place] [address] Lower Extremity Arterial Doppler Report Patient Name: JULIO INTERIANO D : 1955 Study Date: 08/22/2024 12:48:00 PM Gender: M Shipping And Receiving Supervisor: Regla Ash RVT Location: [facility] Ref Provider: MARLEE FERNANDES Quality: Adequate Order Provider: MARLEE FERNANDES PROCEDURES: Arterial Report: Bilateral lower extremity arterial Doppler exam at rest. INDICATIONS: I70.213 Atherosclerosis of makah arteries of extremities withintermittent claudication, bilateral legs. HISTORY: HTN. HLD. DM. COMPARISONS: The previous exam was completed on 05/09/24 @ [facility]: Bilat ABI1.1, Rt TBI unable to be obtained, Lt TBI 0.50. MEASUREMENTS: Right Value Left Value Rt Brachial Pressure 115 mmHg Lt Brachial Pressure 117 mmHg Rt SHOE CASER Pressure 134 mmHg Lt SHOE CASER Pressure 132 mmHg Rt DPA Pressure 124 [...] Marlee Fernandes MD 08/22/2024 1:41:53 PM CDT Marlee Fernandes MD [facility] PROCEDURES Final Result from Last 3 Months Insurance [facility] MEDICARE ADVANTAGE [facility] Address: [facility] [address] [place] [address] [facility] MEDICARE ADVANTAGE [facility] Address: [facility] [address] [place] [address] Care Teams Truckman Relationship Specialty Start Date End Date Felipe Jiménez DO PCP - General Internal Medicine 05/26/22
[2024-11-22 13:07] LABS: Hematocrit 46.1 % (42.0-52.0); Hemoglobin 13.7 g/dL (14.0-18.0); Immature Granulocyte Percent A 0.3 % (0-0.5); Lymphocytes Absolute Auto 1.70 K/mm3 (0.9-3.2); Mean Corpuscular HGB Conc 29.7 g/dl (32-36); Mean Corpuscular Hemoglobin 24.6 pg (26-34); Mean Corpuscular Volume 82.8 fl (80-100); Nucleated Red Blood Cells Absolute Auto 0.000 K/mm3 (0.0-0.012); Nucleated Red Blood Cells Perc 0.0 % (0.0-0.2); Platelet Count Result 297 k/mm3 (150-375); Red Blood Count 5.57 M/mm3 (4.6-6.20); White Blood Count 7.1 K/mm3 (4.5-10.0)
[2024-11-22 13:18] LABS: Alanine Aminotransferase 26 U/L (6-50); Albumin Level 4.6 g/dL (3.5-5.1); Alkaline Phosphatase 71 U/L (38-126); Anion Gap 7 mmol/L (4-12); Aspartate Amino Transferase 64 U/L (17-59); Bilirubin,Total 0.8 mg/dL (0.2-1.3); Blood Urea Nitrogen 15 mg/dL (9-20); Calcium 9.7 mg/dL (8.4-10.2); Carbon Dioxide 31 mmol/L (22-30); Chloride 98 mmol/L (98-107); Cholesterol 137 mg/dL (0-200); Estimated Glomerular Filt Rate > 60; Glucose 153 mg/dL (65-110); HDL Direct 35 mg/dL; Potassium 5.0 mmol/L (3.4-5.0); Sodium 136 mmol/L (137-145); Total Protein 8.3 g/dL (6.3-8.2); Triglycerides 196 mg/dL (<150)
[2024-11-22 13:47] LABS: MALB Creatinine Ratio < 4.7 mg/g (0-30)
[2024-11-22 13:54] LABS: Prostate Specific Antigen 2.5 ng/mL (< OR = 4.0)
[2024-11-22 14:11] LABS: Hypochromasia 1+; Schistocytes None Seen
[2024-11-22 14:16] LABS: Hemoglobin A1C 7.3 % (<5.7)
== END 2024-11-22 08:04 | disposition home or self-care (01) ==
LOC: ANHGOSHLAB 08:04
PROVIDERS: PCP Clinical Nurse Specialist; Visit Provider Clinical Nurse Specialist
DX: E11.9 Type 2 diabetes mellitus without complications (principal); R97.20 Elevated prostate specific antigen [PSA]; C61 Malignant neoplasm of prostate; E78.5 Hyperlipidemia, unspecified; I10 Essential (primary) hypertension; E55.9 Vitamin D deficiency, unspecified
CPT/HCPCS: 36415; 80053; 80061; 82043; 82306; 83036; 84153; 85025

== ENCOUNTER 2025-03-04 08:10 | Outpatient (CLI) | payer MEDICARE, SELFPAY ==
--- OUTSIDE RECORDS SUMMARY | 2025-03-04 08:13 | XMS_ITS | Clinical Summary ---
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 CREW LEADER Gender Identity Not on file Sexual Orientation Not on file Last Filed Vital Signs Vital Sign Reading Time Taken Comments Blood Pressure 111/66 09/05/2024 9:42 AM CDT Pulse 55 09/05/2024 9:42 AM CDT Temperature 35.8 C (96.4 F) 07/02/2022 3:10 PM SUPPRESSION CREW LEADER Respiratory Rate 27 07/02/2022 3:10 PM SUPPRESSION CREW LEADER Oxygen Saturation 99% 09/05/2024 9:42 AM CDT [...] Assessment 07/03/2023 07/02/2022 Covid-19 Vaccine (4 - 2024-2 6 season) 2024 02/26/2021, 06/17/2020, 05/27/2020 Influenza Vaccine (#1) 2024 , 02/26/2021, 03/02/2015, Additional history exists DTaP/Tdap/Td Vaccine (2 - Td or Tdap) 07/28/2030 07/28/2020 Insurance [facility] MEDICARE ADVANTAGE [facility] MEDICARE ADVANTAGE Care Teams Jewelry Cutter Relationship Specialty Start Date End Date Felipe Jiménez DO PCP - General Internal Medicine 05/26/22
[2025-03-04 13:15] LABS: Alanine Aminotransferase 16 U/L (6-50); Albumin Level 4.2 g/dL (3.5-5.1); Alkaline Phosphatase 66 U/L (38-126); Anion Gap 8 mmol/L (4-12); Aspartate Amino Transferase 37 U/L (17-59); Bilirubin,Total 0.4 mg/dL (0.2-1.3); Blood Urea Nitrogen 17 mg/dL (9-20); Calcium 9.0 mg/dL (8.4-10.2); Carbon Dioxide 29 mmol/L (22-30); Chloride 99 mmol/L (98-107); Estimated Glomerular Filt Rate 56; Glucose 137 mg/dL (65-110); Potassium 3.9 mmol/L (3.4-5.0); Sodium 136 mmol/L (137-145); Total Protein 7.6 g/dL (6.3-8.2)
[2025-03-04 13:45] LABS: Hemoglobin A1C 7.4 % (<5.7)
[2025-03-04 13:51] LABS: Prostate Specific Antigen 2.2 ng/mL (< OR = 4.0)
[2025-03-06 11:09] LABS: Free Testosterone (Direct) 7.4 pg/mL (6.6-18.1)
== END 2025-03-04 08:11 | disposition home or self-care (01) ==
LOC: ANHGOSHLAB 08:10
PROVIDERS: PCP Clinical Nurse Specialist; Visit Provider Clinical Nurse Specialist
DX: R97.20 Elevated prostate specific antigen [PSA] (principal); I10 Essential (primary) hypertension; E11.9 Type 2 diabetes mellitus without complications; R53.83 Other fatigue
CPT/HCPCS: 36415; 80053; 83036; 84153; 84402; 84403